=== PATIENT | male | born 1965 | race Caucasian/White ===

== ENCOUNTER 2024-02-06 07:56 | Emergency (ER) | payer OTHER | END 2024-02-06 11:32 | disposition home or self-care (01) | LOC: JD.ED 07:56 | DX: I82.431 Acute embolism and thrombosis of right popliteal vein (principal); I82.461 Acute embolism and thrombosis of right calf muscular vein; F17.210 Nicotine dependence, cigarettes, uncomplicated; Z96.659 Presence of unspecified artificial knee joint; Z79.01 Long term (current) use of anticoagulants | CPT/HCPCS: 93971-26-RT; 93971-RT; 99283 ==